=== PATIENT | male | born 1960 | race Caucasian/White ===

== ENCOUNTER 2020-03-28 18:37 | Emergency (ER) | payer SELFPAY ==
[2020-03-28] MEDS ORDERED: cefTRIAXone 1 GM in Sodium Chloride 0.9% 50 ML IV ONE (20:12)
--- NOTE | 2020-03-28 20:18 | EDM.PDOC ---
ED HPI GENERAL MEDICAL PROBLEM - General Chief Complaint: Neck Problem Stated Complaint: RED/SWOLLEN LUMP ON NECK Time Seen by Provider: 03/28/20 19:55 Source of Information: Reports: Patient, RN Notes Reviewed History Limitations: Reports: No Limitations - History of Present Illness INITIAL COMMENTS - FREE TEXT/NARRATIVE: Jung presents today with complaints of redness and irritation to right side of neck. He reports this morning his neck felt itchy and has been rubbing on his shirt all day. He reports now the area is red and more irritated. 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 Denies: Fever, Chills, Malaise, Weakness , Diaphoresis HEENT: Reports: Other (redenss and irritation to right neck with edema) Respiratory: Reports: No Symptoms Cardiovascular: Reports: No Symptoms Endocrine: Reports: No Symptoms GI/Abdominal: Reports: No Symptoms Skin: Reports: No Symptoms Neurological: Reports: No Symptoms Psychiatric: Reports: No Symptoms Hematologic/Lymphatic: Reports: No Symptoms Immunologic: Reports: No Symptoms ED EXAM, SKIN/RASH Exam: See Below Exam Limited By: No Limitations General Appearance: Alert, WD/WN, No Apparent Distress Eye Exam: Bilateral Eye: Normal Inspection, PERRL Ears: Normal External Exam, Normal Canal, Hearing Grossly Normal, Normal TMs Nose: Normal Inspection, Normal Mucosa, No Blood Throat/Mouth: Normal Inspection, Normal Lips, Normal Gums, Normal Oropharynx, Normal Voice, No Airway Compromise Head: Atraumatic, Normocephalic Neck: Supple, Full Range of Motion, Lymphadenopathy (R), Other (fluctuance, edema from right mid neck to right clavicle with central scabbing. No drainage noted.). No: Lymphadenopathy (L) Respiratory/Chest: No Respiratory Distress, Lungs Clear, Normal Breath Sounds, No Accessory Muscle Use, Chest Non-Tender. No: Crackles, Rales, Rhonchi, Wheezing Cardiovascular: Normal Peripheral Pulses, Regular Rate, Rhythm, No Edema, No Gallop, No Murmur, No Rub Peripheral Pulses: 2+: Radial (L), Radial (R) Back Exam: Normal Inspection, Full Range of Motion. No: CVA Tenderness (R), CVA Tenderness (L) Extremities: Normal Inspection, Normal Range of Motion, Non-Tender, No Pedal Edema, Normal Capillary Refill Neurological: Alert, Oriented, Normal Cognition, Normal Gait, No Motor/Sensory Deficits Course - Vital Signs Last Recorded V/S: Last Vital Signs Temp 36.6 C 03/28/20 19:29 Pulse 108 H 03/28/20 19:29 Resp 16 03/28/20 19:29 BP 147/90 H 03/28/20 19:29 Pulse Ox 99 03/28/20 19:29 - Orders/Labs/Meds Labs: Laboratory Tests 03/28/20 03/28/20 Range/Units 20:30 20:30 WBC 13.2 H (4.5-11.0) K/uL RBC 4.78 (4.30-5.90) M/uL Hgb 15.2 H (12.0-15.0) g/dL Hct 44.3 (40.0-54.0) % MCV 93 (80-98) fL MCH 32 H (27-31) pg MCHC 34 (32-36) % Plt Count 274 (150-400) K/uL Neut % (Auto) 71 H (36-66) % Lymph % (Auto) 16 L (24-44) % [place] % (Auto) 7 H (2-6) % Eos % (Auto) 6 H (2-4) % Baso % (Auto) 1 (0-1) % Sodium 134 L (140-148) mmol/L Potassium 4.4 (3.6-5.2) mmol/L Chloride 98 L (100-108) mmol/L Carbon Dioxide 27 (21-32) mmol/L Anion Gap 13.4 (5.0-14.0) mmol/L BUN 15 (7-18) mg/dL Creatinine 1.2 (0.8-1.3) mg/dL Est Cr Clr Drug Dosing 70.95 mL/min Estimated GFR (MDRD) > 60 (>60) Glucose 520 H* (74-106) mg/dL Calcium 9.2 (8.5-10.1) mg/dL Patient lab work reviewed with him and Dr. Cullen, they are in agreement with plan. Patient will be given ceftriaxone 1 gram IV, discharge with cephalexin 1000mg PO BID for 10 days. He will return for any worsening. Area marked with skin marker. Follow up with primary in 3 to 7 days for recheck. Meds: Medications Discontinued Medications Generic Name Dose Route Start Last Admin Trade Name Freq PRN Reason Stop Dose Admin Ceftriaxone Sodium 1 gm/ 50 mls @ 100 mls/hr 03/28/20 20:12 03/28/20 20:33 Sodium Chloride IV 03/28/20 20:41 100 mls/hr ONETIME ONE Administration - Re-Assessments/Exams Free Text/Narrative Re-Assessment/Exam: Patient tolerated ceftriaxone without complications. Education provided on care of cellulitis. He was advised to take insulin as directed, antibiotics as directed and to return for any worsening. Patient verbalizes understanding. He was advised to not work tomorrow. Departure - Departure Time of Disposition: 20:45 Disposition: Home, Self-Care 01 Condition: Good Clinical Impression: Cellulitis of neck - Discharge Information *PRESCRIPTION DRUG MONITORING PROGRAM REVIEWED*: Not Applicable *COPY OF PRESCRIPTION DRUG MONITORING REPORT IN PATIENT YOLY: Not Applicable Instructions: Cellulitis, Adult Referrals: PCP,None [Primary Care Provider] - Forms: ED Department Discharge Additional Instructions: Drink plenty of water to stay hydrated. Take cephalexin 1000mg (two pills) by mouth twice a day for 10 days. Take naproxen as needed for pain. Follow up with primary in 3 to 7 days for recheck. If any worsening, issues or concerns, return to the emergency room. Sepsis Event Note - Evaluation Sepsis Screening Result: No Definite Risk - Focused Exam Vital Signs: Vital Signs Temp Pulse Resp BP Pulse Ox 03/28/20 19:29 36.6 C 108 H 16 147/90 H 99 03/28/20 18:52 36.6 C 108 H 16 147/90 H 99 Date Exam was Performed: 03/28/20 Time Exam was Performed: 21:33 - Assessment/Plan Assessment:: cellulitis neck Plan: Drink plenty of water to stay hydrated. Take cephalexin 1000mg (two pills) by mouth twice a day for 10 days. Take naproxen as needed for pain. Follow up with primary in 3 to 7 days for recheck. If any worsening, issues or concerns, return to the emergency room.
== END 2020-03-28 21:10 | disposition home or self-care (01) ==
LOC: JP.ED 18:37
DX: L03.221 Cellulitis of neck (principal); E11.9 Type 2 diabetes mellitus without complications; F17.210 Nicotine dependence, cigarettes, uncomplicated; Z79.4 Long term (current) use of insulin
CPT/HCPCS: 36415; 80048; 85025; 96365; 99283; J0696; J7050